=== PATIENT | female | born 1970 | race Caucasian/White ===

== ENCOUNTER 2020-06-19 23:07 | Emergency (ER) | payer OTHER ==
[~2020-06-19] VITALS: Ht 162.6 cm; Wt 62.1 kg
--- NOTE | ~2020-06-19 | EMS ---
[place] [address] EMS Patient Care Report Name: KHANG MARRERO Room #: REG JC Medrano#: [id number] Admission: 06/19/20 Attend Phys: Discharge: Date of : 72 Report #: [id number] THIS REPORT FOR: //name// Report Transmitted: 06/19/2020 22:58 EMS Care Summary [place], [place]/[facility] Incident [id number] @ 06/19/2020 22:33 Incident Location [address] [place] [address] Patient KHANG ESCUDERO Male, 50 Years 1970 Patient Address [address] [place] [address] Patient History Type 2 Diabetes, Patient Allergies No known allergies, Patient Medications Metformin, Chief Complaint I just don't feel right Disposition Transported No Lights/[place] Reason Unconscious/Fainting Transported To [facility] Narrative Called to the scene for a fainting. Upon arrival, pt was PICKERING x 3 sitting on the couch at her Uncle's place. She said approx an hour [employer] she started feeling nauseated, weak, with RLQ abd pain and a dry mouth. [place] [address] EMS Patient Care Report Name: KHANG MARRERO Room #: REG Mitchell#: [id number] Admission: 06/19/20 Attend Phys: Discharge: Date of : 72 Report #: [id number] never happened before and wanted to go to the hospital by an ambulance. She walked to the EMS cot and was loaded into the ambulance w/o incident. Vitals obtained. [address] elevation. D-stick. En route: 18g IV. Vitals repeated. RR to ER. Arrived: pt taken to ER #1 and moved to their bed w/o incident. Pt care & report to ER staff. Initial Vitals @22:53P: 89,R: 14,Pain: 4/10,SpO2: 100,AL Suspected: false @22:52P: 92,R: 16,BP: 147/87,Pain: 4/10,GCS: 15,Glucose: 113,CO: 1,SpO2: 100,Revised Trauma: 12, @22:48P: 94,R: 16,BP: 146/80,Pain: 4/10,GCS: 15,CO: 0,SpO2: 99,Revised Trauma: 12, Assessments @22:45MENTAL:Person Oriented,Time Oriented,Event Oriented,Place Oriented,SKIN:HEENT:LUNG SOUNDS:General: Nausea,Right Upper: Other,Right Lower: Other,ABDOMEN:General: Nausea,Right Upper: Other,Right Lower: Other,PELVIS//GI:EXTREMITIES:Left Arm: No Abnormalities,Right Arm: No Abnormalities,Left Leg: No Abnormalities,Right Leg: No Abnormalities,PULSE:NEURO:No Abnormalities, Impression Abdominal Pain Procedures @22:5312-Lead ECGResponse: UnchangedSucceeded@23:00Saline Lock 8cc (18 ga) Site: Antecubital-LeftResponse: UnchangedSucceeded@22:513-Lead ECGResponse: UnchangedSucceeded@22:46StretcherResponse: Unchanged@22:45ALS AssessmentResponse: UnchangedSucceeded Timeline 22:31,Call Received 22:31,Dispatch Notified 22:33,Dispatched 22:36,En Route 22:41,On Scene 22:44,At Patient 22:45,ALS Assessment,Response: UnchangedSucceeded, 22:46,Stretcher,Response: Unchanged 22:48,BP: 146/80 M,PULSE: 94,RR: 16 R,SPO2: 99 Ox,ETCO2: ,BG: ,PAIN: 4,GCS: 15, 22:51,3-Lead ECG,Response: UnchangedSucceeded, 22:52,BP: 147/87 M,PULSE: 92,RR: 16 R,SPO2: 100 Ox,ETCO2: ,B,PAIN: 4,GCS: 15, 22:53,12-Lead ECG,Response: UnchangedSucceeded, 22:53,BP: / M,PULSE: 89,RR: 14 R,SPO2: 100 Ox,ETCO2: ,BG: ,PAIN: 4,GCS: , 22:55,Depart Scene [address] [address] EMS Patient Care Report Name: ELIDAKHANG Bower Room #: REG [facility] [id number] Admission: 06/19/20 Attend Phys: Discharge: Date of : 72 Report #: [id number] 22:59,At Destination 23:00,Saline Lock 8cc 18 ga Site: Antecubital-Left,Response: UnchangedSucceeded, 23:20,Call Closed Disclaimer v1.1 Copyright 2020 [employer] This EMS Care Summary contains data elements from the applicable legal record (which may be displayed differently). It is designed to provide pertinent information for the following purposes: continuity of care, clinical quality, and state data reporting. The complete legal record is available to ED staff and administrators of the receiving hospital in [employer]'s Patient Tracker. All data is provided "as is."
[2020-06-20 00:12] LABS: HEMATOCRIT 39.4 % (37.0-47.0); MCH 31.7 pg (26.0-34.0); MCV 95.9 fL (80.0-100.0); RBC 4.11 mil/uL (4.20-5.00); RDW 12.6 % (10.5-14.5); WBC 7.7 thou/uL (4.0-11.0)
[2020-06-20 00:14] LABS: URINE BILIRUBIN NEGATIVE (Negative); URINE BLOOD NEGATIVE (Negative); URINE CLARITY CLEAR; URINE COLOR YELLOW; URINE GLUCOSE-RANDOM* NEGATIVE (Negative); URINE KETONES NEGATIVE (Negative); URINE LEUKOCYTES-REFLEX NEGATIVE (Negative); URINE NITRITE-REFLEX NEGATIVE (Negative); URINE PROTEIN (DIPSTICK) NEGATIVE (Negative); URINE SPECIFIC GRAVITY <= 1.005 (1.005-1.035); URINE UROBILINOGEN 0.2 E.U./dl (0.2-1.0)
[2020-06-20 00:23] LABS: ALBUMIN 4.7 g/dL (3.4-5.0); CREATININE 0.7 mg/dL (0.6-1.0); DIRECT BILIRUBIN 0.1 mg/dL (<0.1-0.2); TOTAL BILIRUBIN 0.6 mg/dL (0.2-1.0); TOTAL PROTEIN 8.3 g/dL (6.4-8.2)
[2020-06-20 00:24] LABS: POTASSIUM 2.9 mmol/L (3.5-5.1)
[2020-06-20 01:12] LABS: AMP/METHAMP Negative (Negative); BARBITURATES Negative (Negative); BENZODIAZEPINES Negative (Negative); COCAINE Negative (Negative); METHADONE Negative (Negative); OPIATES Negative (Negative); PCP Negative (Negative)
[2020-06-20] MEDS ORDERED: FLAGYL500 M1 PO (01:55)
[2020-06-20 02:28] VITALS: BP 94/66
[2020-06-20] MEDS ORDERED: METFORMIN HCL500 M3 PO (21:54)
== END 2020-06-20 02:32 | disposition home or self-care (01) ==
LOC: ER 23:07
PROVIDERS: Emergency Medicine
DX: R10.31 Right lower quadrant pain (principal); R53.1 Weakness; R19.7 Diarrhea, unspecified; R11.0 Nausea; R30.9 Painful micturition, unspecified

== ENCOUNTER 2020-06-20 21:45 | Emergency (ER) | payer OTHER ==
[~2020-06-20] VITALS: Ht 162.6 cm; Wt 62.1 kg
[~2020-06-20 21:45] MED LIST: FLAGYL500 M1 PO
[2020-06-20 21:48] VITALS: BP 117/82
[2020-06-20] MEDS ORDERED: METFORMIN HCL500 M3 PO (21:54)
[2020-06-20 22:10] LABS: URINE BILIRUBIN NEGATIVE (Negative); URINE BLOOD NEGATIVE (Negative); URINE CLARITY CLEAR; URINE COLOR YELLOW; URINE GLUCOSE-RANDOM* NEGATIVE (Negative); URINE KETONES NEGATIVE (Negative); URINE LEUKOCYTES-REFLEX NEGATIVE (Negative); URINE NITRITE-REFLEX NEGATIVE (Negative); URINE PROTEIN (DIPSTICK) NEGATIVE (Negative); URINE SPECIFIC GRAVITY <= 1.005 (1.005-1.035); URINE UROBILINOGEN 0.2 E.U./dl (0.2-1.0)
== END 2020-06-20 22:14 | disposition left against medical advice (07) ==
LOC: ER 21:45
PROVIDERS: Emergency Medicine
DX: R10.9 Unspecified abdominal pain (principal); R53.1 Weakness; R11.0 Nausea; Z79.899 Other long term (current) drug therapy; Z53.29 Procedure and treatment not carried out because of patient's decision for other reasons